=== PATIENT | female | born 1945 | race Caucasian/White ===

== ENCOUNTER 2017-03-19 11:03 | Inpatient (IN) | payer MEDICARE ==
[~2017-03-19] VITALS: Ht 152.4 cm; Wt 74.8 kg
[2017-03-19 11:23] LABS: GLUCOSE,POINT OF CARE 276 MG/DL (70-110)
[2017-03-19] MEDS ORDERED: VENL-193 PO (11:38)
[2017-03-19] MEDS ORDERED: ATOR40TA28 PO (11:38)
[2017-03-19] MEDS ORDERED: CLON.5 PO (11:38)
[2017-03-19] MEDS ORDERED: METF500T4 PO (11:38)
[2017-03-19 11:57] LABS: BASOPHILS % (AUTO) 0.6 % (0.0-2.0); EOSINOPHILS % (AUTO) 3.2 % (1.0-6.0); HEMATOCRIT 39.2 % (36-46); HEMOGLOBIN 13.1 g/dL (12.0-16.0); LYMPHOCYTES # (AUTO) 2.1 K/uL (1.0-4.8); LYMPHOCYTES % (AUTO) 29.6 % (22.0-44.0); MEAN CORPUSCULAR HEMOGLOBIN 30.5 pg (26.0-34.0); MEAN CORPUSCULAR HGB CONC 33.5 G/dL (31.0-37.0); MEAN CORPUSCULAR VOLUME 91 fL (80-100); MONOCYTES # (AUTO) 0.4 K/uL (0.1-1.0); MONOCYTES % (AUTO) 5.9 % (2.0-9.0); NEUTROPHILS # (AUTO) 4.4 K/uL (1.8-7.7); NEUTROPHILS % (AUTO) 60.7 % (40.0-70.0); PLATELET COUNT (AUTO) 275 K/uL (150-450); RED BLOOD CELL COUNT(AUTO) 4.31 MIL/uL (4.00-5.20); RED CELL DISTRIBUTION WIDTH 13.2 % (11.5-14.5); WHITE BLOOD COUNT (AUTO) 7.2 K/uL (4.5-11.0)
[2017-03-19 12:05] LABS: ANION GAP 11 mmol/L (8-16); CARBON DIOXIDE 23 mmol/L (22-29); CHLORIDE 105 mmol/L (98-107); CREATININE 0.84 mg/dL (0.60-1.30); GLOMERULAR FILTR. RATE CALC > 60 mL/min (>60); POTASSIUM 4.3 mmol/L (3.5-5.1); SODIUM SERUM 139 mmol/L (136-145); UREA NITROGEN, BLOOD 17 mg/dL (7-18)
[2017-03-19 12:10] LABS: ALANINE AMINOTRANSFERASE 33 U/L (12-78); ALBUMIN 3.5 g/dL (3.4-5.0); ASPARTATE AMINOTRANSFERASE 21 U/L (15-37); BILIRUBIN,TOTAL 0.2 mg/dL (0.1-1.0); TOTAL PROTEIN, SERUM 6.9 g/dL (6.4-8.2)
[2017-03-19] MEDS ORDERED: LORazepam 1 MG TABLET PO ONE (12:45)
[2017-03-19] MEDS ORDERED: HALOPERIDOL 5 MG TABLET PO PRN (13:45)
[2017-03-19] MEDS ORDERED: ZOLPIDEM TARTRATE 10 MG TABLET PO PRN (13:45)
[2017-03-19 15:37] LABS: GLUCOSE,POINT OF CARE 193 MG/DL (70-110)
[2017-03-19] MEDS ORDERED: IBUPROFEN 400 MG TABLET PO PRN (15:45)
[2017-03-19] MEDS ORDERED: DOCUSATE SODIUM 100 MG CAPSULE PO PRN (15:45)
[2017-03-19] MEDS ORDERED: ACETAMINOPHEN 325 MG TABLET PO PRN (15:45)
[2017-03-19] MEDS ORDERED: CloNIDine HCL 0.1 MG TABLET PO PRN (15:45)
[2017-03-19 16:42] LABS: GLUCOSE,POINT OF CARE 255 MG/DL (70-110)
[2017-03-19] MEDS ORDERED: DEXTROSE 50%-WATER 25 GM/50 ML SYRINGE IVP PRN (17:15)
[2017-03-19] MEDS: INSULIN ASPART 100 UNITS/ML SQ PRN ×2 (17:19→20:55)
[2017-03-19 18:35] VITALS: BP 139/79
[2017-03-19] MEDS: LORazepam 2 MG TABLET PO PRN (19:45)
[2017-03-19 20:48] LABS: APPEARANCE,URINE CLEAR (CLEAR); GLUCOSE, URINE (UA) 100 mg/dL (NEGATIVE); KETONES,URINE NEGATIVE (NEGATIVE); LEUKOCYTE ESTERASE ,URINE SMALL (NEGATIVE); OCCULT BLOOD,URINE NEGATIVE (NEGATIVE); PH,URINE 6.5 (5.0-8.0); PROTEIN,URINE NEGATIVE (NEGATIVE)
[2017-03-19 20:50] LABS: ADD UA MICROSCOPIC YES
[2017-03-19 21:50] LABS: RBC,URINE 0-2 /HPF (0-2); SQUAMOUS EPITHELIAL CELL,UR Few /LPF (None Seen); TRANSITIONAL EPI CELLS,URINE Few /LPF (None Seen)
[2017-03-20 05:54] LABS: GLUCOSE COMMENT 1 Received Meds; GLUCOSE,POINT OF CARE 213 MG/DL (70-110)
[2017-03-20 06:22] VITALS: BP 122/89
[2017-03-20] MEDS: MetFORMIN HCL 500 MG TABLET PO SCH (06:44)
[2017-03-20] MEDS: INSULIN ASPART 100 UNITS/ML SQ PRN ×4 (07:19→23:30)
[2017-03-20] MEDS ORDERED: ACETAMINOPHEN 325 MG TABLET PO PRN (07:45)
[2017-03-20] MEDS ORDERED: DOCUSATE SODIUM 100 MG CAPSULE PO PRN (07:45)
[2017-03-20] MEDS ORDERED: IBUPROFEN 400 MG TABLET PO PRN (07:45)
[2017-03-20 07:54] LABS: GLUCOSE COMMENT 1 Received Meds; GLUCOSE,POINT OF CARE 172 MG/DL (70-110)
[2017-03-20 08:05] VITALS: BP 137/98
[2017-03-20] MEDS: ATORVASTATIN CALCIUM 40 MG TABLET PO SCH (08:29)
[2017-03-20] MEDS: NEOMYCIN/BACITRACIN/POLYMYXIN B 30 GM OINTMENT TP SCH ×2 (08:29→16:32)
[2017-03-20] MEDS: AmLODIPine BESYLATE 5 MG TABLET PO SCH (08:29)
[2017-03-20] MEDS ORDERED: ATORVASTATIN CALCIUM 40 MG TABLET PO SCH (09:00)
[2017-03-20] MEDS ORDERED: LOPERAMIDE HCL 2 MG CAPSULE PO PRN ×2 (10:00→10:30)
[2017-03-20] MEDS: LORazepam 2 MG TABLET PO PRN ×3 (10:26→22:26)
[2017-03-20 11:36] LABS: GLUCOSE COMMENT 1 Received Meds; GLUCOSE,POINT OF CARE 219 MG/DL (70-110)
[2017-03-20] MEDS: RisperiDONE 0.5 MG TABLET PO SCH (16:32)
[2017-03-20] MEDS: DIVALPROEX SODIUM 500 MG DR TABLET PO SCH (16:32)
[2017-03-21 02:05] VITALS: BP 164/97
[2017-03-21] MEDS: CIPROFLOXACIN HCL 500 MG TABLET PO SCH ×3 (02:19→17:06)
[2017-03-21 05:00] LABS: GLUCOSE,POINT OF CARE 243 MG/DL (70-110)
[2017-03-21 05:00] LABS: GLUCOSE,POINT OF CARE 184 MG/DL (70-110)
[2017-03-21] MEDS: INSULIN ASPART 100 UNITS/ML SQ PRN ×4 (06:51→21:32)
[2017-03-21] MEDS: MetFORMIN HCL 500 MG TABLET PO SCH (07:23)
[2017-03-21 07:55] LABS: HEMOGLOBIN A1C 9.2 % (4.5-6.2)
[2017-03-21 08:51] VITALS: BP 133/65
[2017-03-21] MEDS: DIVALPROEX SODIUM 500 MG DR TABLET PO SCH (09:00)
[2017-03-21] MEDS: ATORVASTATIN CALCIUM 40 MG TABLET PO SCH (09:00)
[2017-03-21] MEDS: RisperiDONE 0.5 MG TABLET PO SCH (09:00)
[2017-03-21 09:02] LABS: CHOL/HDL RATIO 3.6 (3.9-5.7)
[2017-03-21] MEDS: AmLODIPine BESYLATE 5 MG TABLET PO SCH (09:37)
[2017-03-21] MEDS: NEOMYCIN/BACITRACIN/POLYMYXIN B 30 GM OINTMENT TP SCH ×2 (09:43→17:06)
[2017-03-21 10:26] LABS: THYROID STIMULATING HORMONE 2.06 uIU/mL (0.36-3.74)
[2017-03-21 11:14] LABS: GLUCOSE,POINT OF CARE 199 MG/DL (70-110)
[2017-03-21] MEDS: ASPIRIN/DIPYRIDAMOLE ER 25/200 MG ER CAPSULE PO SCH (11:24)
[2017-03-21 11:42] LABS: GLUCOSE,POINT OF CARE 185 MG/DL (70-110)
[2017-03-21] MEDS: LORazepam 2 MG TABLET PO PRN (12:51)
[2017-03-21] MEDS: VENLAFAXINE HCL 75 MG ER CAPSULE PO SCH (13:19)
[2017-03-21] MEDS ORDERED: ClonazePAM 0.5 MG TABLET PO SCH (17:00)
[2017-03-21 17:12] LABS: GLUCOSE,POINT OF CARE 199 MG/DL (70-110)
[2017-03-21 20:04] VITALS: BP 138/89
[2017-03-21 20:38] LABS: GLUCOSE,POINT OF CARE 150 MG/DL (70-110)
[2017-03-21] MEDS ORDERED: TraZODone HCL 50 MG TABLET PO SCH (21:00)
[2017-03-22 01:35] VITALS: BP 133/68
[2017-03-22 06:09] LABS: GLUCOSE,POINT OF CARE 164 MG/DL (70-110)
[2017-03-22] MEDS: MetFORMIN HCL 500 MG TABLET PO SCH (06:55)
[2017-03-22] MEDS: INSULIN ASPART 100 UNITS/ML SQ PRN (07:13)
[2017-03-22 08:20] VITALS: BP 134/82
[2017-03-22] MEDS ORDERED: VENLAFAXINE HCL 75 MG ER CAPSULE PO SCH (09:00)
[2017-03-22] MEDS: VENLAFAXINE HCL 75 MG ER CAPSULE PO SCH (09:03)
[2017-03-22] MEDS: ASPIRIN/DIPYRIDAMOLE ER 25/200 MG ER CAPSULE PO SCH (09:03)
[2017-03-22] MEDS: AmLODIPine BESYLATE 5 MG TABLET PO SCH (09:03)
[2017-03-22] MEDS: CIPROFLOXACIN HCL 500 MG TABLET PO SCH (09:03)
[2017-03-22] MEDS: ATORVASTATIN CALCIUM 40 MG TABLET PO SCH (09:04)
[2017-03-22] MEDS ORDERED: AMLO-511 PO (09:52)
[2017-03-22] MEDS ORDERED: CIPR-278 PO ×2 (09:52→09:54)
[2017-03-22] MEDS ORDERED: ASPI1CPM8 PO (09:52)
[2017-03-22] MEDS ORDERED: TRAZ-144 PO (09:55)
[2017-03-22] MEDS ORDERED: VENL-67 PO (09:57)
[2017-03-22 11:37] LABS: GLUCOSE,POINT OF CARE 213 MG/DL (70-110)
== END 2017-03-22 11:30 | disposition home or self-care (01) | DRG 885 ==
LOC: EMS 11:05 → 3EX 15:24
PROVIDERS: ADMIT Psychiatry & Neurology Psychiatry; ATTEND Psychiatry & Neurology Psychiatry
DX: F31.9 Bipolar disorder, unspecified (principal); R45.851 Suicidal ideations; R45.850 Homicidal ideations; E11.9 Type 2 diabetes mellitus without complications; G89.29 Other chronic pain; M54.9 Dorsalgia, unspecified; Z88.0 Allergy status to penicillin; Z88.8 Allergy status to other drugs, medicaments and biological substances; Z91.041 Radiographic dye allergy status; Z79.899 Other long term (current) drug therapy; Z79.84 Long term (current) use of oral hypoglycemic drugs; Z90.49 Acquired absence of other specified parts of digestive tract; Z85.9 Personal history of malignant neoplasm, unspecified
CPT/HCPCS: 82962; 83036; 84443; 87086; 99285; G0480